=== PATIENT | female | born 1995 | race Two or more races ===

== ENCOUNTER 2021-12-26 23:05 | Observation (INO) | payer MEDICAID ==
[~2021-12-26] VITALS: Ht 160 cm; Wt 72.6 kg
[2021-12-27] MEDS ORDERED: GLYB1.257 PO (00:04)
[2021-12-27] MEDS ORDERED: METF-370 PO (00:04)
== END 2021-12-27 00:26 | disposition home or self-care (01) ==
LOC: LDRP 23:05
PROVIDERS: ADMIT Obstetrics & Gynecology; ATTEND Obstetrics & Gynecology
DX: O36.8120 Decreased fetal movements, second trimester, not applicable or unspecified (principal); O24.415 Gestational diabetes mellitus in pregnancy, controlled by oral hypoglycemic drugs; Z3A.27 27 weeks gestation of pregnancy; Z79.84 Long term (current) use of oral hypoglycemic drugs
CPT/HCPCS: 59025; 76815; 76817; 81002; 82948; 82962; G0378